=== PATIENT | female | born 1980 | race Caucasian/White ===

== ENCOUNTER → 2019-01-03 09:40 | Outpatient (CLI) | payer OTHER, SELFPAY ==
--- NOTE | 2019-01-03 | DI.US.S_ITS ---
LIMITED ULTRASOUND OF RIGHT BREAST: 01/03/2019 CLINICAL: Palpable right breast lump x 6 months. Comparison is made to exam dated: 01/03/2019 [facility]. Color flow and real-time ultrasound of the right breast 5 o'clock region were performed on the areas of interest. There is a 0.4 cm x 0.5 cm x 0.5 cm oval cyst in the right breast at 5 o'clock posterior depth. This oval cyst is hypoechoic with internal echoes and posterior acoustic enhancement. This correlates as palpated. Color flow imaging demonstrates that there is no vascularity present. IMPRESSION: PROBABLY BENIGN The 0.4 cm x 0.5 cm x 0.5 cm oval cyst in the right breast is consistent with a complicated cyst and is probably benign. A follow-up ultrasound in 6 months is recommended. A follow-up ultrasound in 6 months is recommended to demonstrate stability. This exam was interpreted at Station ID: [id number]. Electronically Signed By: Mitch guerra/briseyda:01/03/2019 12:07:55 letter sent: Followup Recommended Ultrasound BI-RADS: 3 Probably benign
--- NOTE | 2019-01-03 | DI.MG.S_ITS ---
BILATERAL DIGITAL DIAGNOSTIC MAMMOGRAM 3D/2D: 01/03/2019 CLINICAL: Baseline exam. Lump in the right breast. No prior exams were available for comparison. The tissue of both breasts is heterogeneously dense. This may lower the sensitivity of mammography. No significant masses, calcifications, or other findings are seen in either breast. IMPRESSION: INCOMPLETE: NEEDS ADDITIONAL IMAGING EVALUATION There is no abnormality seen in the right breast to correspond with the palpable abnormality in the lower inner quadrant, however, ultrasound is recommended. This exam was interpreted at Station ID: [id number]. NOTE: For mammograms, a report in lay terms will be sent to the patient. Approximately 15% of breast malignancies will not be visualized mammographically. In the management of a palpable breast mass, a negative mammogram must not discourage biopsy of a clinically suspicious lesion. Electronically Signed By: Mitch guerra/briseyda:01/03/2019 10:47:23 ACR BI-RADS Category 0: Incomplete 3340F
== END ==
PROVIDERS: Family Provider Family Medicine; Visit Provider Nurse Practitioner Family
DX: R92.8 Other abnormal and inconclusive findings on diagnostic imaging of breast (principal); N60.01 Solitary cyst of right breast
CPT/HCPCS: 76642; 77066; G0279

== ENCOUNTER → 2019-01-20 09:31 | Outpatient (CLI) | payer OTHER, SELFPAY ==
[2019-01-20 10:19] LABS: Alanine Aminotransferase 15 IU/L (9-52); Albumin 4.5 g/dL (3.5-5.0); Albumin Globulin Ratio 1.7 (1.0-2.8); Alkaline Phosphatase 51 U/L (38-126); Aspartate Aminotransferase 18 IU/L (14-36); BUN Creatinine Ratio 17.1 (6-22); Bilirubin Total 0.8 mg/dL (0.2-1.3); Blood Urea Nitrogen 12 mg/dL (7-17); Calcium 9.6 mg/dL (8.4-10.2); Carbon Dioxide 29 mmol/L (22-32); Chloride 107 mmol/L (98-107); Cholesterol 189 mg/dL (140-199); Estimated Glomerular Filt Rate > 60.0 mL/min (>60); Globulin 2.7 g/dL (1.7-4.1); Glucose 95 mg/dL (70-100); HDL Cholesterol 56 mg/dL (40-60); HEMOLYSIS < 15 (0-50); LDL Cholesterol Calculated 123 mg/dL (<100); Potassium 4.6 mmol/L (3.4-5.1); Sodium 141 mmol/L (137-145); Total Protein 7.2 g/dL (6.3-8.2); Triglycerides 50 mg/dL (35-150)
== END ==
PROVIDERS: Family Provider Family Medicine; PCP Nurse Practitioner Family; Visit Provider Nurse Practitioner Family
DX: Z13.0 Encounter for screening for diseases of the blood and blood-forming organs and certain disorders involving the immune mechanism (principal); Z13.220 Encounter for screening for lipoid disorders
CPT/HCPCS: 36415; 80053; 80061

== ENCOUNTER → 2019-02-05 15:56 | Outpatient (CLI) | payer OTHER, SELFPAY ==
--- NOTE | 2019-02-05 | DI.ECHO.S_ITS ---
[facility] +---------+ : : [address] : : : : [id number] : : : : Phone: [phone]---------+ Echocardiogram Report + + :Name: CARRIE HERMAN Study Date: 02/05/2019 Height: 62 in : :[facility] Weight: 126 lb : : Gender: Female BSA: 1.6 m2 : :: 1980 Age: 38 yrs BP: 132/82 mmHg: :Reason For Study: FAMILY HISTORY OF CAD : : Performed By: [facility] Staff : :Referring: BETSY NOLAN : + + Interpretation Summary The left ventricle is normal in size. Left ventricular systolic function is normal without focal wall motion abnormalities. The ejection fraction is estimated to be 55-60%. Diastolic parameters suggest probable normal left ventricular diastolic function and normal filling pressures. The right ventricle is normal in size and function. The left atrial size is normal. Right atrial size is normal. There is no significant valvular heart disease. The aortic root is normal size. Procedure: A two-dimensional transthoracic echocardiogram with color flow and Doppler was performed. The study quality was technically good. There is no prior echocardiogram noted for this patient. The patient was in normal sinus rhythm during the exam. Left Ventricle: The left ventricle is normal in size. There is normal left ventricular wall thickness. Left ventricular systolic function is normal without focal wall motion abnormalities. The ejection fraction is estimated to be 55-60%. Diastolic parameters suggest probable normal left ventricular diastolic function and normal filling pressures. Right Ventricle: The right ventricle is normal in size and function. Atria: The left atrial size is normal. Right atrial size is normal. The interatrial septum is intact with no evidence for an atrial septal defect. Mitral Valve: The mitral valve is normal in structure and function. There is no mitral regurgitation noted. Aortic Valve: The aortic valve is trileaflet. The aortic valve opens well. No aortic regurgitation is present. Tricuspid Valve: The tricuspid valve is normal in structure and function. No tricuspid regurgitation. Pulmonic Valve: The pulmonic valve is not well visualized. There is no pulmonic valvular regurgitation. There is no significant valvular heart disease. Great Vessels: The aortic root is normal size. The ascending aorta could not be visualized. The pulmonary artery is normal size. The inferior vena cava was not visualized. Pericardium/ Pleura There is no pericardial effusion. There is no pleural effusion. MMode/2D Measurements & Calculations LVIDd: 4.0 cm LVOT diam: 2.0 cm LVIDs: 2.8 cm Ao root diam: 2.7 cm FS: 29.6 % EPSS: 0.62 cm IVSd: 0.74 cm LVPWd: 0.93 cm LV feliz. diameter/BSA (cm/m^2): 2.5 LV sys. diameter/BSA (cm/m^2): 1.8 LA A2 area: 15.8 cm2 RA long axis: 3.7 cm LA A4 area: 13.2 cm2 RA area: 8.2 cm2 LA length (vol): 4.1 cm RA vol: 15.2 ml LA vol: 43.8 ml RA : 9.7 ml/m2 LA vol index: 27.9 ml/m2 TAPSE: 2.7 cm Doppler Measurements & Calculations Ao V2 max: 132.5 cm/sec LVOT Max Kameron: 117.7 cm/sec Ao V2 mean: 101.3 cm/sec LV V1 max P.5 mmHg Ao max P.0 mmHg LV V1 VTI: 24.9 cm Ao mean P.4 mmHg RICK(I,D): 2.9 cm2 Ao V2 VTI: 25.9 cm RICK(V,D): 2.7 cm2 sev ratio: 0.96 RICK indexed to BSA (cm^2/m^2): 1.9 MV E max kameron: 67.9 cm/sec PA V2 max: 90.1 cm/sec MV A max kameron: 58.2 cm/sec PA V2 mean: 62.1 cm/sec MV E/A: 1.2 PA mean P.8 mmHg Med Peak E' Kameron: 10.9 cm/sec PA Accel Time: 0.12 sec E/E' med: 6.2 Lat Peak E' Kameron: 15.8 cm/sec E/E' lat: 4.3 E/e' average: 5.3 MV dec time: 0.14 sec SV(LVOT): 75.1 ml Reading Physician:05:08 PM
== END ==
PROVIDERS: PCP Nurse Practitioner Family; Visit Provider Nurse Practitioner Family
DX: Z13.6 Encounter for screening for cardiovascular disorders (principal); Z82.49 Family history of ischemic heart disease and other diseases of the circulatory system
CPT/HCPCS: 93306

== ENCOUNTER → 2022-03-04 11:57 | Outpatient (CLI) | payer OTHER, SELFPAY ==
[2022-03-04 18:29] LABS: Add Manual Diff / Slide Review NO; Basophils Absolute Auto 100 /uL (0-100); Basophils Percent Auto 1.3 % (0-2); Eosinophils Absolute Auto 100 /uL (0-450); Eosinophils Percent Auto 2.3 % (2-4); Hematocrit 41.5 % (36-46); Hemoglobin 14.2 g/dL (12.0-16.0); Lymphocytes Absolute Auto 2400 /uL (1100-4500); Lymphocytes Percent Auto 40.5 % (25-40); Mean Corpuscular HGB Conc 34.2 % (30-36); Mean Corpuscular Hemoglobin 28.7 PG (26-34); Mean Corpuscular Volume 83.9 fL (80-100); Monocytes Absolute Auto 400 /uL (0-900); Monocytes Percent Auto 6.5 % (3-14); Neutrophils Absolute Auto 2900 /uL (1500-7000); Neutrophils Percent Auto 49.4 % (50-75); Platelet Count 437 X10^3/uL (150-400); Red Blood Cell Count 4.95 X10^6/uL (4.0-5.2); Red Cell Distribution Width 13.7 % (11.6-14.8); White Blood Cell Count 5.8 X10^3/uL (4.5-11.0)
[2022-03-04 18:43] LABS: Hemoglobin A1C% w Est Avg Glu 4.9 % (4.0-6.0)
[2022-03-04 18:47] LABS: Cholesterol 202 mg/dL (140-199); HDL Cholesterol 64 mg/dL (40-60); LDL Cholesterol Calculated 127 mg/dL (<100); Triglycerides 55 mg/dL (35-150)
[2022-03-04 19:12] LABS: TSH w/ Reflex to FT4 1.58 uIU/mL (0.47-4.68)
== END ==
PROVIDERS: PCP Nurse Practitioner Family; Visit Provider Registered Nurse
DX: S05.30XA Ocular laceration without prolapse or loss of intraocular tissue, unspecified eye, initial encounter (principal); Z13.6 Encounter for screening for cardiovascular disorders; Z13.0 Encounter for screening for diseases of the blood and blood-forming organs and certain disorders involving the immune mechanism
CPT/HCPCS: 80061; 83036; 84443; 85025

== ENCOUNTER → 2022-03-31 11:55 | Outpatient (CLI) | payer OTHER, SELFPAY ==
--- NOTE | 2022-03-31 | DI.US.S_ITS ---
ULTRASOUND OF RIGHT BREAST AND AXILLA: 03/31/2022 CLINICAL: Patient returns today to evaluate a focal asymmetry in the right breast. Comparison is made to exams dated: 03/31/2022 mammogram, 01/03/2019 ultrasound, and 01/03/2019 mammogram - [facility]. Color flow and real-time ultrasound of the right breast axilla were performed. There is a stable benign 0.4 cm x 0.5 cm x 0.5 cm complicated cyst since 2019 in the right breast at 5 o'clock posterior depth 7 cm from the nipple. No significant abnormalities were seen sonographically in the right axilla. IMPRESSION: BENIGN There is no sonographic evidence of malignancy. The stable 0.4 cm x 0.5 cm x 0.5 cm complicated cyst in the right breast is benign, unchanged compared to 2019. Return to annual mammogram screening schedule is recommended. This exam was interpreted at Station ID: [id number]. Electronically Signed By: Delvin Johnson M.D. lc/:03/31/2022 13:20:56 letter sent: Normal Exam Ultrasound BI-RADS: 2 Benign
--- NOTE | 2022-03-31 | DI.MG.S_ITS ---
BILATERAL DIGITAL DIAGNOSTIC MAMMOGRAM 3D/2D: 03/31/2022 CLINICAL: Short term follow up of the right breast, due for bilateral imaging. Comparison is made to exams dated: 01/03/2019 ultrasound and 01/03/2019 mammogram - [facility]. Both breasts are heterogeneously dense, which may obscure small masses (category c / 51-75% glandular tissue). No significant masses, calcifications, or other findings are seen in either breast. IMPRESSION: INCOMPLETE: NEEDS ADDITIONAL IMAGING EVALUATION There is no abnormality seen in the right breast to correspond with the previous 2019 ultrasound finding, however, ultrasound is recommended. Based on the Tyrer Cuzick model (a risk assessment model) the patient's lifetime risk is 13.4% and her 10 year risk is 2.3%. According to the ACR, ACS, and NCCN guidelines, an annual breast MRI exam along with mammogram is recommended if the patient's lifetime risk is 20% or greater. This exam was interpreted at Station ID: [id number]. NOTE: For mammograms, a report in lay terms will be sent to the patient. Approximately 15% of breast malignancies will not be visualized mammographically. In the management of a palpable breast mass, a negative mammogram must not discourage biopsy of a clinically suspicious lesion. Electronically Signed By: Delvin Johnson M.D. lc/:03/31/2022 13:19:02 ACR BI-RADS Category 0: Incomplete 3340F
== END ==
PROVIDERS: PCP Registered Nurse; Referring Provider Registered Nurse; Visit Provider Registered Nurse
DX: R92.8 Other abnormal and inconclusive findings on diagnostic imaging of breast (principal); N60.01 Solitary cyst of right breast
CPT/HCPCS: 76642; 77066; G0279

== ENCOUNTER → 2024-04-04 11:33 | Outpatient (CLI) | payer OTHER, SELFPAY ==
--- NOTE | 2024-04-04 11:35 | DI.MG.S_ITS ---
BILATERAL DIGITAL SCREENING MAMMOGRAM 3D/2D WITH CAD: 04/04/2024 CLINICAL: Routine screening. Comparison is made to exams dated: 03/31/2022 mammogram and 01/03/2019 mammogram - [facility]. The breasts are heterogeneously dense, which may obscure small masses (category c / 51-75% glandular tissue). Current study was also evaluated with a Computer Aided Detection (CAD) system. No significant masses, calcifications, or other findings are seen in either breast. There has been no significant interval change. IMPRESSION: NEGATIVE There is no mammographic evidence of malignancy. A 1 year screening mammogram is recommended. Based on the Tyrer Cuzick model (a risk assessment model) the patient's lifetime risk is 13.5% and her 10 year risk is 2.6%. According to the ACR, ACS, and NCCN guidelines, an annual breast MRI exam along with mammogram is recommended if the patient's lifetime risk is 20% or greater. This exam was interpreted at Station ID: [id number]. NOTE: For mammograms, a report in lay terms will be sent to the patient. Approximately 15% of breast malignancies will not be visualized mammographically. In the management of a palpable breast mass, a negative mammogram must not discourage biopsy of a clinically suspicious lesion. Electronically Signed By: Tonya Haas M.D., Ph.D. lilly/briseyda:04/04/2024 14:34:17 letter sent: Normal Exam ACR BI-RADS Category 1: Negative
--- NOTE | 2024-04-04 11:35 | DI.US.S_ITS ---
PROCEDURE: US PELVIC COMPLETE INDICATIONS: DUB TECHNIQUE: Real-time scanning was performed of the pelvic organs, with image documentation. Additional endovaginal scanning was necessary due to incomplete visualization of the adnexal and endometrial structures by transabdominal scanning. COMPARISON: None. FINDINGS: Uterus: Uterus is anteverted and normal in size at 7.5 x 4.2 x 3.3 cm. The myometrium is heterogeneous. The endometrium measures 6 mm combined thickness. Small nabothian cysts. Left anterior intramural fibroid measuring 1.9 x 1.4 x 1.2 cm. Right posterior intramural fibroid measuring 3.4 x 3.2 x 2.9 cm. Ovaries: The right ovary is not seen. The left ovary measures 6.9 x 6.9 x 4.9 cm, estimated volume of 121 cc. There is a large anechoic cyst measuring 6.3 x 6.3 x 4.8 cm. Less than 12 ovarian follicles are seen in the left ovary. Other: No pathologic free abdominal or pelvic fluid. IMPRESSION: 1. Endometrium measures 6 mm. 2. Small intramural fibroids x2. Largest measuring 3.4 cm. 3. Large anechoic left ovarian cyst measuring 6.3 cm. -Recommend follow-up pelvic ultrasound in 6-12 weeks given its large size. We strive to produce accurate, complete, and clear reports of imaging services. To assist us in improving patient care, this report was composed using standard report templates and voice recognition software. Therefore, it may contain abnormal punctuation, insertions and/or omissions. Occasional wrong-word or sound-alike substitutions may occur. Though we review the report and make efforts to correct it, we do recommend that the report be read carefully in proper context to recognize any text inaccuracies. Dictated by: Vin Estrada M.D. on 04/05/2024 at 0:58 Approved by: Vin Estrada M.D. on 04/05/2024 at 1:06
== END ==
LOC: MAMMO 11:34
PROVIDERS: PCP Registered Nurse; Referring Provider Registered Nurse; Visit Provider Registered Nurse
DX: Z12.31 Encounter for screening mammogram for malignant neoplasm of breast (principal); R92.333 Mammographic heterogeneous density, bilateral breasts; D25.1 Intramural leiomyoma of uterus; N92.6 Irregular menstruation, unspecified; N83.292 Other ovarian cyst, left side
CPT/HCPCS: 76830; 76856; 77063; 77067

== ENCOUNTER → 2024-06-04 08:40 | Outpatient (CLI) | payer OTHER, SELFPAY ==
--- NOTE | 2024-06-04 08:41 | DI.US.S_ITS ---
PROCEDURE: US PELVIC COMPLETE INDICATIONS: F/U LEFT OVARIAN CYST TECHNIQUE: Real-time scanning was performed of the pelvic organs, with image documentation. Additional endovaginal scanning was necessary due to incomplete visualization of the adnexal and endometrial structures by transabdominal scanning. COMPARISON: [facility], US, US PELVIC COMPLETE, 04/04/2024, 12:02. FINDINGS: Uterus: Uterus is anteverted and normal in size at 7.1 x 4.6 x 3.3 cm. The myometrium is heterogeneous. The endometrium measures 5.4 mm combined thickness. Mild endometrial vascularity without mass. Ovaries: The right ovary measures 2.5 x 1.8 x 1.3 cm, with a calculated ovarian volume of 3.1 cc. The left ovary measures 7.2 x 6.5 x 5.4 cm, with a calculated ovarian volume of 132 cc. No significant change in persistent simple left ovarian cyst measuring 7.0 cm. Less than 12 follicles can be seen in each ovary. No adnexal masses are seen. Other: No pathologic free abdominal or pelvic fluid. IMPRESSION: 1. No significant change in appearance or size of 7 cm simple left ovarian cyst with the subtle size differences likely technically related. Given the size, gynecologic protocol pelvic MRI is recommended for further characterization. Given the size, patient is at increased risk for spontaneous ovarian torsion. 2. Intramural fibroid similar prior examination. 3. Increased endometrial vascularity without definitive mass. We strive to produce accurate, complete, and clear reports of imaging services. To assist us in improving patient care, this report was composed using standard report templates and voice recognition software. Therefore, it may contain abnormal punctuation, insertions and/or omissions. Occasional wrong-word or sound-alike substitutions may occur. Though we review the report and make efforts to correct it, we do recommend that the report be read carefully in proper context to recognize any text inaccuracies. Dictated by: Casey MCGOWAN Interpreted: Kojo Freeman MD on 06/04/2024 at 11:24 Transcribed by: KATERINE on 06/04/2024 at 11:28 Approved by: Kojo Freeman M.D. on 06/05/2024 at 13:19
== END ==
PROVIDERS: PCP Registered Nurse; Referring Provider Registered Nurse; Visit Provider Registered Nurse
DX: N92.6 Irregular menstruation, unspecified (principal); D25.1 Intramural leiomyoma of uterus; N83.202 Unspecified ovarian cyst, left side
CPT/HCPCS: 76830; 76856

== ENCOUNTER → 2024-06-21 09:03 | Outpatient (CLI) | payer OTHER, SELFPAY | PROVIDERS: PCP Registered Nurse; Visit Provider Specialist | DX: R35.0 Frequency of micturition (principal) | CPT/HCPCS: 87086 ==

== ENCOUNTER 2024-07-09 08:20 | Day surgery (SDC) | payer OTHER, SELFPAY ==
[2024-06-29 10:31] VITALS: BMI 25.2
--- NOTE | 2024-07-09 | PATH_ITS ---
[facility] Accession Number: [id number] No. of containers..02 Tissue . 01 Material submitted: . PART A: body - LEFT PARATUBAL CYST PART B: endometrium - ENDOMETRIAL CURETTINGS . 01 Diagnosis: A. LEFT PARATUBAL CYST, LEFT SALPINGECTOMY: Fallopian tube, complete cross-sections, with a benign paratubal cyst (64 mm in greatest dimension); negative for significant atypia. . B. ENDOMETRIAL CURETTINGS: Proliferative endometrium with patchy regions of stromal breakdown; negative for endometrioid intraepithelial neoplasia or malignancy. Myometrium with no significant atypia. . [facility] 07/12/2024 1341 Local . 01 Electronically signed: . Bailee Merritt MD, Pathologist NPI- [id number] . 01 Gross description: . A. Received in formalin with two identifiers and L paratubal cyst, is a fimbriated fallopian tube (4.5 x 0.7 cm) with attached thin smooth walled cyst (6.4 x 5.0 x 3.5 cm). The external surface is inked blue. The cyst contains clear serous fluid and the jerez average less than 0.1 cm thick with no excrescences identified. The serosa of the fallopian tube is violaceous and smooth, and the lumen is stellate and unremarkable. Buncher Operator sections are submitted as follows: A1: Fallopian tube, fimbriae, and cross-sections. A2-A4: Cyst wall. B. Received in formalin with two identifiers and endometrial curetting, are multiple canales to red-brown soft tissue fragments received on Telfa paper aggregating to 2.5 x 1.3 x 0.3 cm. Filtered and submitted entirely in B1. ([id number]) /MRV 07/10/[address] [place] [address] . 01 Pathologist provided ICD-10: N83.292 . 01 CPT . 710953, 629320 Specimen Comment: A courtesy copy of this report has been sent to [phone] Performed at: [address] [id number] MD Mitch Almanzar MD Phone: [phone]
[2024-07-09] MEDS: LACTATED RINGERS 1,000 ML 42 ML IV (08:42)
[2024-07-09] MEDS: ACETAMINOPHEN 325 MG TABLET 975 MG PO (08:45)
[2024-07-09 08:56] VITALS: BP 133/83; PULSE 84; RESP 16; TEMP 36.3; O2SAT 99; BMI 25.0
--- NOTE | 2024-07-09 09:22 | PM.PREOP ---
Pre-operative Note Interval Note History & Physical reviewed/Exam performed by Physician: Yes Changes to H&P: No
--- NOTE | 2024-07-09 10:04 | SUR.OPER ---
Lithotomy on padded OR bed, head on pillow, arms secured at sides and padded. Legs secured in padded yellow fins stirrups.
[2024-07-09] MEDS: BUPIVACAINE 0.5% W/ EPI (PF) 30 ML VIAL 15 ML INJ (11:10)
--- NOTE | 2024-07-09 11:12 | PM.OP.1 ---
Operative Date/Time/Diagnoses Date of procedure: 07/09/24 Time of procedure: 11:13 Pre-op diagnosis: Left ovarian cyst, menorrhagia Post-op diagnosis: other (Left paratubal cyst rather than ovarian) Procedure & Clinicians Procedure: Laparoscopic left paratubal cyst removal, hysteroscopy D&C Same procedure as scheduled: Yes Indications: 6 cm left presumed ovarian cyst by ultrasound with menorrhagia Surgeon: Leandra Mckeon Cdl Program Coordinator: Elly Chapa Anesthesia Type: General Operative Notes Findings: Left paratubal benign cyst. Normal uterus tubes and ovaries. Normal bowel surface. Normal liver edge and gallbladder dome. No evidence of scar tissue or endometriosis. No internal hernias noted. Normal exam under anesthesia. 2 endometrial polyps with normal endometrial cavity otherwise. No obvious indentation of endometrium by the uterine fibroids. Closure Type: primary Specimen(s): other (Left paratubal cyst with portion of left fallopian tube. Endometrial curettings.) Estimated Blood Loss (mL): 10 Blood products transfused: none Procedure in detail: Patient was brought to the operating room where she underwent general anesthesia. She was placed in low yellowfin stirrups and prepped and draped in usual sterile fashion. Pulsatile stockings were in place and functional. Warming was with blankets. The area of the incisions were injected with half percent Marcaine with epinephrine. An incision was made in the umbilicus with a scalpel. The incision was carried down to the fascial layer with blunt dissection. The fascia was grasped and cut transversely. 0 Vicryl suture were placed in 2 sections. The peritoneum was entered bluntly. The Padilla cannula was placed in the abdomen. After confirming the trocar was in the abdomen the balloon was inflated with air. The abdomen was insufflated with CO2. 2 other 5 mm trochars were placed in the right and left lower quadrant under direct visualization after incising the skin. There did not appear to be any damage with placement of the trocars. The cyst was found to be paratubal. Using the power seal the cyst with a small portion of the left tube was removed. The cyst was placed in to a Endo-Catch bag without rupture. The bag was brought up to the umbilical incision and the clear fluid was removed from the cysts and the cyst wall removed and sent to pathology. The trocar was replaced. Adequate hemostasis was noted. The CO2 was allowed to escape from the abdomen. The trochars were removed. Skin was closed with 4-0 monocryl. Next the procedure was switch to vaginal. A single-tooth tenaculum was placed on the anterior lip of the cervix. The cervix was dilated to a #8 Hegar dilator. The hysteroscope was placed through the cervix into the uterus. A curettage was performed. Tissue was sent to pathology. The patient went to recovery room in good condition. Complications: none Post-operative Condition: stable Disposition: same day surgery Plan for aftercare: Home when awake and stable.
[2024-07-09 11:21] VITALS: BP 109/76; PULSE 80; RESP 14; TEMP 36.2; O2SAT 99
[2024-07-09 11:26] VITALS: BP 130/76; PULSE 78; RESP 9; O2SAT 100
[2024-07-09 11:32] VITALS: BP 119/73; PULSE 73; RESP 15; O2SAT 99
[2024-07-09 11:36] VITALS: BP 128/78; PULSE 70; RESP 10; TEMP 35.9; O2SAT 100
== END 2024-07-09 11:53 | disposition home or self-care (01) ==
PROVIDERS: PCP Registered Nurse; Referring Provider Specialist; Visit Provider Specialist
PROC: 0UDB8ZZ Extraction of Endometrium, Via Natural or Artificial Opening Endoscopic (ICD-10-PCS; CPT 58558; principal; 2024-07-09 09:45)
PROC: (CPT 58661; 2024-07-09 09:45)
DX: N83.8 Other noninflammatory disorders of ovary, fallopian tube and broad ligament (principal); N92.0 Excessive and frequent menstruation with regular cycle; Z87.891 Personal history of nicotine dependence
CPT/HCPCS: 58662; 58558; J1100; J2250; J2704; J3010; J3490

== ENCOUNTER → 2025-01-04 06:36 | Outpatient (CLI) | payer OTHER, SELFPAY ==
--- NOTE | 2025-01-04 06:37 | DI.US.S_ITS ---
PROCEDURE: US PELVIC COMPLETE INDICATIONS: amenorrhea TECHNIQUE: Real-time scanning was performed of the pelvic organs, with image documentation. Additional endovaginal scanning was necessary due to incomplete visualization of the adnexal and endometrial structures by transabdominal scanning. COMPARISON: [facility], , US PELVIC COMPLETE, 06/04/2024, 9:11. FINDINGS: Uterus: Uterus is anteverted and normal in size at 6.8 x 2.9 x 4.4 cm. The myometrium is heterogeneous. The endometrium measures 4 mm combined thickness. There is a intramural fibroid on the left measuring 1.4 x 1.3 x 1.3 cm as well as in the midportion measuring 3.1 x 2.6 x 3.5 cm. Ovaries: The right ovary measures 2.6 x 2.3 x 1 cm, with a calculated ovarian volume of 3 cc. The left ovary measures 2.4 x 1.6 x 1.1 cm, with a calculated ovarian volume of 2 cc. The ovaries have a normal sonographic appearance. Less than 12 follicles can be seen in each ovary. No adnexal masses are seen. Other: No pathologic free abdominal or pelvic fluid. IMPRESSION: 1. Uterine fibroids measuring up to 3.5 cm, essentially stable. 2. No ovarian cyst or adnexal mass seen at this time. We strive to produce accurate, complete, and clear reports of imaging services. To assist us in improving patient care, this report was composed using standard report templates and voice recognition software. Therefore, it may contain abnormal punctuation, insertions and/or omissions. Occasional wrong-word or sound-alike substitutions may occur. Though we review the report and make efforts to correct it, we do recommend that the report be read carefully in proper context to recognize any text inaccuracies. Dictated by: Mckay Jin M.D. on 01/06/2025 at 14:03 Approved by: Mckay Jin M.D. on 01/06/2025 at 14:06
== END ==
LOC: US 06:36
PROVIDERS: PCP Registered Nurse; Referring Provider Registered Nurse; Visit Provider Registered Nurse
DX: N91.2 Amenorrhea, unspecified (principal); D25.1 Intramural leiomyoma of uterus
CPT/HCPCS: 76830; 76856

== ENCOUNTER → 2025-03-22 08:03 | Outpatient (CLI) | payer OTHER, SELFPAY ==
--- NOTE | 2025-03-22 08:04 | DI.ECHO.S_ITS ---
[facility] : : [address] : : [place] : : [id number] : : Phone: [phone] Echocardiogram Report + + :Name: CARRIE HERMAN Study Date: 03/22/2025 Height: 62 in : :[facility] ReadingLocation: Weight: 138 lb : : Gender: Female BSA: 1.6 m2 : :: 1980 Age: 45 yrs BP: 136/89 mmHg: :Reason For Study: Dilated Cardiomyopathy gene positive : :Ordering Physician: ANKIT, : :ORIANA Performed By: Ji Varela : :Referring: ORIANA PHAM : + + Interpretation Summary Normal biventricular size and systolic function. LVEF is 60 to 65%. Normal atrial sizes. No significant valvular dysfunction is noted. Other findings as below. Procedure: A two-dimensional transthoracic echocardiogram with color flow and Doppler was performed. The study quality was technically adequate. Comparison is made with the echocardiogram of 02/05/2019. The patient was in normal sinus rhythm during the exam. Left Ventricle: The left ventricle is normal in size and wall thickness. Left ventricular systolic function is normal. The ejection fraction is estimated to be 60-65%. There are no focal wall motion abnormalities. Normal diastolic function. Right Ventricle: The right ventricle is normal in size and function. Atria: The left atrial size is normal. Right atrial size is normal. There is no Doppler evidence for an interatrial shunt. Mitral Valve: The mitral valve leaflets appear to open well. There is no mitral valve stenosis. There is trace mitral regurgitation. Aortic Valve: The aortic valve is trileaflet. The aortic valve opens well. There is no aortic valve stenosis. No aortic regurgitation is present. Tricuspid Valve: The tricuspid valve leaflets are thin and pliable. There is a trace or physiologic amount of tricuspid regurgitation. Pulmonary artery pressures cannot be estimated because of the lack of a measurable TR jet velocity but the IVC suggests a CVP of around 3 mmHg. Pulmonic Valve: The pulmonic valve leaflets are thin and pliable; valve motion is normal. There is a trace or physiologic amount of pulmonic regurgitation. Great Vessels: The aortic root is normal size. The ascending aorta is normal in size. The aortic arch could not be visualized. The pulmonary artery is normal size. The IVC is of normal diameter and collapses greater than 50% with a sniff. This suggests a low right atrial pressure of 3 mm Hg. Pericardium/ Pleura There is no pericardial effusion. MMode/2D Measurements & Calculations LVIDd: 4.4 cm LVOT diam: 2.0 cm LVIDs: 3.0 cm Ao root diam: 3.0 cm FS: 32.0 % asc Aorta Diam: 3.1 cm IVSd: 0.77 cm LVPWd: 0.77 cm LV feliz. diameter/BSA (cm/m^2): 2.7 LV sys. diameter/BSA (cm/m^2): 1.8 LA A2 area: 16.2 cm2 RA long axis: 5.0 cm LA A4 area: 13.4 cm2 RA area: 12.6 cm2 LA length (vol): 4.9 cm RA vol: 27.2 ml LA vol: 37.8 ml RA : 16.7 ml/m2 LA vol index: 23.1 ml/m2 IVC diam: 1.2 cm RVD1 (basal): 2.7 cm RVD2 (mid): 2.4 cm TAPSE: 2.4 cm Doppler Measurements & Calculations Ao V2 max: 125.7 cm/sec LVOT Max Kameron: 97.0 cm/sec Ao V2 mean: 88.1 cm/sec LV V1 max P.8 mmHg Ao max P.3 mmHg LV V1 VTI: 16.8 cm Ao mean P.5 mmHg RICK(I,D): 2.2 cm2 Ao V2 VTI: 23.1 cm RICK(V,D): 2.4 cm2 sev ratio: 0.72 RICK indexed to BSA (cm^2/m^2): 1.4 MV E max kameron: 67.2 cm/sec SV(LVOT): 51.1 ml MV A max kameron: 44.3 cm/sec MV E/A: 1.5 Med Peak E' Kameron: 10.0 cm/sec E/E' med: 6.7 Lat Peak E' Kameron: 12.9 cm/sec E/E' lat: 5.2 E/e' average: 6.0 MV dec time: 0.22 sec Reading Physician:04:[id number] PM
== END ==
LOC: ECHO 08:03
PROVIDERS: PCP Registered Nurse; Referring Provider Registered Nurse; Visit Provider Registered Nurse
DX: I42.0 Dilated cardiomyopathy (principal)
CPT/HCPCS: 93306